=== PATIENT | female | born 1990 | race Caucasian/White ===

== ENCOUNTER 2017-04-11 02:20 | Emergency (ER) | payer OTHER ==
[~2017-04-11] VITALS: Ht 167.6 cm; Wt 63.5 kg
[~2017-04-11 02:20] MED LIST: GABA300 PO; INS70/30PN; INSU100I6 SC; INSUASPI; LEVEMIR FL100 UNIT/1 SC; Lisinopril2.5 MG PO; Omeprazole20 M1 PO
[2017-04-11 03:15] LABS: Calcium, Ionized (POC) 0.81 mmol/L (1.10-1.46); Chloride (POC) 102 mmol/L (98-108); Creatinine (POC) 0.8 mg/dL (0.6-1.0); Glucose (ISTAT POC) 476 mg/dL (70-99); Hemoglobin (POC) 12.6 g/dL (12.0-16.0); Potassium (POC) 4.3 mmol/L (3.5-5.5); Sodium (POC) 134 mmol/L (135-148); Total CO2 (POC) 18 mmol/L (21-32)
[2017-04-11 03:56] LABS: BASOPHILS ABSOLUTE AUTO 0.02 K/mm3 (0.00-0.23); BASOPHILS PERCENT AUTO 0 % (0-2); EOSINOPHILS ABSOLUTE AUTO 0.16 K/mm3 (0.00-0.68); EOSINOPHILS PERCENT AUTO 3 % (0-6); Hematocrit 37.7 % (33.0-51.0); Hemoglobin 13.2 g/dL (11.5-16.0); IMMATURE GRAN ABSOLUTE AUTO 0.01 K/mm3 (0.00-0.10); IMMATURE GRAN PERCENT AUTO 0 % (0-1); LYMPHOCYTES ABSOLUTE AUTO 1.91 K/mm3 (0.84-5.20); LYMPHOCYTES PERCENT AUTO 39 % (21-46); MONOCYTES ABSOLUTE AUTO 0.09 K/mm3 (0.16-1.47); MONOCYTES PERCENT AUTO 2 % (4-13); Mean Corpuscular HGB 30.8 pg (26.0-34.0); Mean Corpuscular Volume 88 fL (80-100); Mean Platelet Volume 10.3 fL (9.1-12.4); NEUTROPHILS ABSOLUTE AUTO 2.67 K/mm3 (1.96-9.15); NEUTROPHILS PERCENT AUTO 55 % (41-73); Platelet Count 278 K/mm3 (150-400); RDW Coefficient Variation 12.4 % (11.7-14.2); RDW Standard Deviation 40.2 fL (35.1-46.3); Red Blood Cell Count 4.29 M/mm3 (3.80-5.20); White Blood Cell Count 4.86 K/mm3 (4.00-11.30)
[2017-04-11 04:19] LABS: Alanine Aminotransfer (ALT/SGP 17 U/L (12-78); Albumin, Blood 3.5 g/dL (3.4-5.0); Alk Phos 104 U/L (50-136); Anion Gap 12 mmol/L (6-16); Aspartate Aminotrans (AST/SGOT 12 U/L (12-37); Bilirubin, Total 0.4 mg/dL (0.1-1.0); Blood Urea Nitrogen 6 mg/dL (8-24); Bun/Creatinine Ratio 12.5 (12.0-20.0); CO2, Blood 22 mmol/L (21-32); Calcium, Blood 8.3 mg/dL (8.5-10.1); Chloride, Blood 104 mmol/L (98-108); Creatinine, Blood 0.48 mg/dL (0.40-1.00); Globulin, Blood 3.4 g/dL (2.2-4.0); Glomerular Filtration Rate >60 (60-); Glucose, Blood 364 mg/dL (70-99); Magnesium, Blood 1.7 mg/dL (1.6-2.4); Potassium, Blood 3.3 mmol/L (3.5-5.5); Sodium, Blood 138 mmol/L (136-145); Total Protein, Blood 6.9 g/dL (6.4-8.2)
[2017-04-11 04:24] LABS: Beta-hydroxybutyrate 7.8 mg/dL (0.2-2.8)
== END 2017-04-11 04:49 | disposition home or self-care (01) ==
LOC: ER 02:20
PROVIDERS: Emergency Medicine
DX: E10.65 Type 1 diabetes mellitus with hyperglycemia (principal); Z91.19 Patient's noncompliance with other medical treatment and regimen; Z88.5 Allergy status to narcotic agent; Z88.8 Allergy status to other drugs, medicaments and biological substances; Z79.899 Other long term (current) drug therapy; Z79.4 Long term (current) use of insulin; Z87.891 Personal history of nicotine dependence
CPT/HCPCS: 36415; 80047; 80053; 81000; 81025; 82010; 82947; 83735; 85014; 85025; 96360; 99283; J1815; J7030

== ENCOUNTER 2017-11-01 21:15 | Emergency (ER) | payer OTHER ==
[~2017-11-01] VITALS: Ht 162.6 cm; Wt 68.5 kg
== END 2017-11-01 22:39 | disposition home or self-care (01) ==
LOC: ER 21:15
DX: M25.562 Pain in left knee (principal); E10.9 Type 1 diabetes mellitus without complications; F17.200 Nicotine dependence, unspecified, uncomplicated; Z88.8 Allergy status to other drugs, medicaments and biological substances; Z88.6 Allergy status to analgesic agent; Z79.899 Other long term (current) drug therapy; W01.0XXA Fall on same level from slipping, tripping and stumbling without subsequent striking against object, initial encounter
CPT/HCPCS: 29505; 73564; 99283-25

== ENCOUNTER 2018-05-04 14:51 | Emergency (ER) | payer OTHER ==
[~2018-05-04] VITALS: Ht 162.6 cm; Wt 67.6 kg
[2018-05-04] MEDS ORDERED: INSUGL100V SC (15:07)
[2018-05-04 16:04] LABS: Source, Urine Clean Catch
[2018-05-04 16:22] LABS: Bilirubin, Urine Neg (Neg); Blood, Urine 3+ (Neg); Glucose Qualitative, Urine 4+ (Neg); Ketones, Urine 1+ (Neg); Leukocyte Esterase, Urine Neg (Neg); Nitrite, Urine Neg (Neg); Protein, Urine 1+ (Neg); Specific Gravity, Urine 1.015 (1.003-1.022); Urobilinogen, Urine NORM (Normal); pH, Urine 6.5 (5.0-8.0)
[2018-05-04 16:35] LABS: Appearance, Urine Clear (Clear); Color, Urine Yellow (P-Yellow)
[2018-05-04 16:38] LABS: Bacteria Few /hpf; Squamous Epithelial Cells Few /hpf (Few); White Blood Cells, Urine 0-2 /hpf (0-5)
== END 2018-05-04 18:03 | disposition home or self-care (01) ==
LOC: ER 14:51
PROVIDERS: Physician Assistant
DX: S90.01XA Contusion of right ankle, initial encounter (principal); S60.221A Contusion of right hand, initial encounter; R10.9 Unspecified abdominal pain; E11.9 Type 2 diabetes mellitus without complications; F17.200 Nicotine dependence, unspecified, uncomplicated; V09.9XXA Pedestrian injured in unspecified transport accident, initial encounter
CPT/HCPCS: 73130; 73562-RT; 73630; 76770; 81001; 99284-25

== ENCOUNTER → 2018-12-27 | Outpatient (CLI) | payer OTHER ==
[~2018-12-27] MED LIST changes: +INSUGL100V SC
[2018-12-29 14:07] LABS: HPV 16 Negative (Negative); HPV 18 Negative (Negative); HPV OTHER HR TYPES Negative (Negative)
== END | disposition home or self-care (01) ==
LOC: LAB SHORT 10:00 → LAB 10:00
PROVIDERS: Nurse Practitioner Family
DX: Z01.419 Encounter for gynecological examination (general) (routine) without abnormal findings (principal)
CPT/HCPCS: 87624; G0145

== ENCOUNTER 2019-10-27 13:09 | Observation (INO) | payer OTHER ==
[~2019-10-27] VITALS: Ht 160 cm; Wt 68.0 kg
[~2019-10-27 13:09] MED LIST changes: -INSUGL100V SC
[2019-10-27 13:40] LABS: BASOPHILS ABSOLUTE AUTO 0.07 K/mm3 (0.00-0.23); BASOPHILS PERCENT AUTO 0 % (0-2); EOSINOPHILS ABSOLUTE AUTO 0.04 K/mm3 (0.00-0.68); EOSINOPHILS PERCENT AUTO 0 % (0-6); Hematocrit 38.9 % (33.0-51.0); IMMATURE GRAN ABSOLUTE AUTO 0.07 K/mm3 (0.00-0.10); IMMATURE GRAN PERCENT AUTO 0 % (0-1); LYMPHOCYTES ABSOLUTE AUTO 0.69 K/mm3 (0.84-5.20); LYMPHOCYTES PERCENT AUTO 4 % (21-46); MONOCYTES ABSOLUTE AUTO 0.79 K/mm3 (0.16-1.47); MONOCYTES PERCENT AUTO 5 % (4-13); Mean Corpuscular HGB 31.3 pg (26.0-34.0); Mean Corpuscular HGB Conc 33.4 g/dL (31.5-36.5); Mean Corpuscular Volume 94 fL (80-100); Mean Platelet Volume 10.5 fL (9.1-12.4); NEUTROPHILS ABSOLUTE AUTO 14.32 K/mm3 (1.96-9.15); NEUTROPHILS PERCENT AUTO 90 % (41-73); Platelet Count 262 K/mm3 (150-400); RDW Coefficient Variation 11.9 % (11.7-14.2); RDW Standard Deviation 40.7 fL (35.1-46.3); Red Blood Cell Count 4.16 M/mm3 (3.80-5.20); White Blood Cell Count 15.98 K/mm3 (4.00-11.30)
[2019-10-27 13:49] LABS: Base Excess Venous -2.3 mmol/L; Bicarbonate Venous 23.1 mmol/L (24.0-30.0); PCO2 Venous 33.2 mmHg (38-42); PO2 Venous 174 mmHg (38-42); pH Blood Venous 7.43 (7.34-7.37)
[2019-10-27 13:52] LABS: Alanine Aminotransfer (ALT/SGP 18 U/L (12-78); Albumin/Globulin Ratio 1.2 (0.8-1.8); Alk Phos 81 U/L (50-136); Anion Gap 5 mmol/L (6-16); Aspartate Aminotrans (AST/SGOT 17 U/L (12-37); Blood Urea Nitrogen 16 mg/dL (8-24); Bun/Creatinine Ratio 23.7 (12.0-20.0); CO2, Blood 27 mmol/L (21-32); Calcium, Blood 9.6 mg/dL (8.5-10.1); Chloride, Blood 108 mmol/L (98-108); Creatinine, Blood 0.67 mg/dL (0.40-1.00); Ethanol (Alcohol), Blood, Med <3 mg/dL; Globulin, Blood 3.2 g/dL (2.2-4.0); Glomerular Filtration Rate >60 (60-); Glucose, Blood 388 mg/dL (70-99); Potassium, Blood 4.7 mmol/L (3.5-5.5); Sodium, Blood 140 mmol/L (136-145); Total Protein, Blood 7.2 g/dL (6.4-8.2)
[2019-10-27 17:29] LABS: Source, Urine Clean Catch
[2019-10-27 17:32] LABS: Appearance, Urine Clear (Clear); Bilirubin, Urine Neg (Neg); Blood, Urine 2+ (Neg); Color, Urine Yellow (P-Yellow); Glucose Qualitative, Urine 4+ (Neg); Ketones, Urine 2+ (Neg); Leukocyte Esterase, Urine Neg (Neg); Nitrite, Urine Neg (Neg); Protein, Urine 1+ (Neg); Specific Gravity, Urine 1.015 (1.003-1.022); Urobilinogen, Urine NORM (Normal)
[2019-10-27 17:48] LABS: U Amphetamine Screen Not Detected; U Barbituate Screen Not Detected; U Benzodiazapine Screen Not Detected; U Buprenorphine Screen Not Detected; U Cannabinoids Screen Not Detected; U Cocaine Screen Not Detected; U Methadone Screen Not Detected; U Methamphetamine Screen Not Detected; U Opiates Screen Not Detected; U Oxycodone Screen Not Detected; U Phencyclidine Screen Not Detected; U Propoxyphene Screen Not Detected
[2019-10-27 17:59] LABS: Bacteria Rare /hpf; Squamous Epithelial Cells Rare /hpf (Few); White Blood Cells, Urine Not Seen /hpf (0-5)
[2019-10-27 19:53] LABS: Salicylate <1.7 mg/dL (2.8-20.0)
[2019-10-27 20:01] LABS: Acetaminophen, Random <2.0 ug/mL (10.0-30.0)
--- NOTE | 2019-10-27 21:32 | NUR ---
PT ARRIVED VIA STRETCHER AT 2114, ASSUMED CARE AT THIS TIME.
--- NOTE | 2019-10-28 05:12 | NUR ---
SHIFT SUMMARY HYPERGLYCEMIA A/O X3, NOT ORIENTED TO DATE BUT WAS REDIRECABLE, CBG 383 UPON ARRIVAL TO ER, MOST RECENT CBG 127. TRANSFERS INDEPENDENTLY, USES RESTROOM W/O ASSISTANCE, HAS NOT EATEN SINCE ARRIVAL TO UNIT, DECLINED FOOD AND DRINK, WANTED TO REST. COMMUNICATES WELL, HX OF HEARING LOSS BUT ABLE TO UNDERSTAND VERBAL INSTRUCTIONS. CALL LIGHT IN REACH, ORIENTED TO ROOM, WILL REPORT TO ONCOMING DAY RN.
[2019-10-28 06:11] LABS: Anion Gap 3 mmol/L (6-16); Blood Urea Nitrogen 14 mg/dL (8-24); Bun/Creatinine Ratio 21.4 (12.0-20.0); CO2, Blood 27 mmol/L (21-32); Calcium, Blood 8.5 mg/dL (8.5-10.1); Chloride, Blood 112 mmol/L (98-108); Creatinine, Blood 0.65 mg/dL (0.40-1.00); Glomerular Filtration Rate >60 (60-); Glucose, Blood 61 mg/dL (70-99); Potassium, Blood 3.5 mmol/L (3.5-5.5); Sodium, Blood 142 mmol/L (136-145)
[2019-10-28] MEDS ORDERED: Lisinopril2.5 MG PO (14:02)
[2019-10-28] MEDS ORDERED: INSUGL100V SC (14:02)
[2019-10-28] MEDS ORDERED: NOVOLOG FL100 UNIT/3 SC (14:02)
--- NOTE | 2019-10-28 14:22 | NUR ---
DISCHARGE DISCHARGE INSTRUCTIONS, MEDICATION LIST AND FOLLOW UP APPOINTMENT. QUESTIONS/CONCERNS ANSWERED. PT VERBALLY INDICATED UNDERSTANDING OF ALL INSTRUCTIONS RECEIVED. ESCORTED OUT BY RIVER
== END 2019-10-28 14:20 | disposition home or self-care (01) ==
LOC: ER 13:09 → MEDS 13:10
PROVIDERS: Emergency Medicine; ADMIT Internal Medicine
DX: G92 Toxic encephalopathy (principal); E10.65 Type 1 diabetes mellitus with hyperglycemia; Z79.4 Long term (current) use of insulin; Z88.6 Allergy status to analgesic agent; Z88.8 Allergy status to other drugs, medicaments and biological substances
CPT/HCPCS: 70450; 80048; 80053; 81001; 82803; 82947; 84443; 85025; 93005; 93010; 96361; 96374; 99285-25; G0378; G0480; J1815; J2310; J7030; J7120; P9612

== ENCOUNTER 2020-07-24 03:57 | Emergency (ER) | payer OTHER ==
[~2020-07-24] VITALS: Ht 160 cm; Wt 75.3 kg
[~2020-07-24 03:57] MED LIST changes: +INSUGL100V SC; +NOVOLOG FL100 UNIT/3 SC
[2020-07-24] MEDS ORDERED: GABA300 PO (04:12)
[2020-07-24 05:23] LABS: BASOPHILS ABSOLUTE AUTO 0.06 K/mm3 (0.00-0.23); BASOPHILS PERCENT AUTO 1 % (0-2); EOSINOPHILS ABSOLUTE AUTO 0.33 K/mm3 (0.00-0.68); EOSINOPHILS PERCENT AUTO 5 % (0-6); Hematocrit 34.7 % (33.0-51.0); Hemoglobin 11.9 g/dL (11.5-16.0); IMMATURE GRAN ABSOLUTE AUTO 0.01 K/mm3 (0.00-0.10); IMMATURE GRAN PERCENT AUTO 0 % (0-1); LYMPHOCYTES ABSOLUTE AUTO 2.33 K/mm3 (0.84-5.20); LYMPHOCYTES PERCENT AUTO 35 % (21-46); MONOCYTES ABSOLUTE AUTO 0.51 K/mm3 (0.16-1.47); MONOCYTES PERCENT AUTO 8 % (4-13); Mean Corpuscular HGB 31.1 pg (26.0-34.0); Mean Corpuscular HGB Conc 34.3 g/dL (31.5-36.5); Mean Corpuscular Volume 91 fL (80-100); Mean Platelet Volume 10.9 fL (9.1-12.4); NEUTROPHILS ABSOLUTE AUTO 3.44 K/mm3 (1.96-9.15); NEUTROPHILS PERCENT AUTO 52 % (41-73); Platelet Count 285 K/mm3 (150-400); RDW Coefficient Variation 12.2 % (11.7-14.2); Red Blood Cell Count 3.83 M/mm3 (3.80-5.20); White Blood Cell Count 6.68 K/mm3 (4.00-11.30)
[2020-07-24 05:43] LABS: Anion Gap 5 mmol/L (6-16); Blood Urea Nitrogen 15 mg/dL (8-24); Bun/Creatinine Ratio 18.5 (12.0-20.0); CO2, Blood 26 mmol/L (21-32); Calcium, Blood 8.6 mg/dL (8.5-10.1); Chloride, Blood 103 mmol/L (98-108); Creatinine, Blood 0.81 mg/dL (0.40-1.00); Glomerular Filtration Rate >60 (60-); Glucose, Blood 442 mg/dL (70-99); Magnesium, Blood 1.7 mg/dL (1.6-2.4); Potassium, Blood 3.7 mmol/L (3.5-5.5); Sodium, Blood 134 mmol/L (136-145); Troponin I <0.015 ng/mL (0.000-0.040)
[2020-07-24] MEDS ORDERED: IBUP800 PO (06:22)
[2020-07-24] MEDS ORDERED: Valium5 MG PO ×2 (06:22→06:24)
[2020-07-24] MEDS ORDERED: ACETAMINOPHEN500 MG PO (06:22)
== END 2020-07-24 06:38 | disposition home or self-care (01) ==
LOC: ER 03:57
PROVIDERS: Emergency Medicine
DX: M25.511 Pain in right shoulder (principal); R07.89 Other chest pain; E10.40 Type 1 diabetes mellitus with diabetic neuropathy, unspecified; F17.200 Nicotine dependence, unspecified, uncomplicated; Z88.8 Allergy status to other drugs, medicaments and biological substances; Z88.6 Allergy status to analgesic agent
CPT/HCPCS: 36415; 71045; 80048; 83735; 84484; 85025; 93005; 93010; 99284-25; A9270

== ENCOUNTER 2020-09-10 01:12 | Emergency (ER) | payer OTHER ==
[~2020-09-10] VITALS: Ht 160 cm; Wt 75.3 kg
[~2020-09-10 01:12] MED LIST changes: +ACETAMINOPHEN500 MG PO; +IBUP800 PO; +Valium5 MG PO
[2020-09-10 03:04] LABS: BASOPHILS ABSOLUTE AUTO 0.04 K/mm3 (0.00-0.23); BASOPHILS PERCENT AUTO 1 % (0-2); EOSINOPHILS ABSOLUTE AUTO 0.38 K/mm3 (0.00-0.68); EOSINOPHILS PERCENT AUTO 5 % (0-6); Hematocrit 38.2 % (33.0-51.0); Hemoglobin 12.9 g/dL (11.5-16.0); IMMATURE GRAN ABSOLUTE AUTO 0.01 K/mm3 (0.00-0.10); IMMATURE GRAN PERCENT AUTO 0 % (0-1); LYMPHOCYTES ABSOLUTE AUTO 2.63 K/mm3 (0.84-5.20); LYMPHOCYTES PERCENT AUTO 32 % (21-46); MONOCYTES ABSOLUTE AUTO 0.53 K/mm3 (0.16-1.47); MONOCYTES PERCENT AUTO 7 % (4-13); Mean Corpuscular HGB 29.9 pg (26.0-34.0); Mean Corpuscular HGB Conc 33.8 g/dL (31.5-36.5); Mean Corpuscular Volume 89 fL (80-100); Mean Platelet Volume 10.9 fL (9.1-12.4); NEUTROPHILS ABSOLUTE AUTO 4.57 K/mm3 (1.96-9.15); NEUTROPHILS PERCENT AUTO 56 % (41-73); Platelet Count 293 K/mm3 (150-400); RDW Coefficient Variation 12.6 % (11.7-14.2); RDW Standard Deviation 41.1 fL (35.1-46.3); Red Blood Cell Count 4.31 M/mm3 (3.80-5.20); White Blood Cell Count 8.16 K/mm3 (4.00-11.30)
[2020-09-10 03:27] LABS: Alanine Aminotransfer (ALT/SGP 27 U/L (12-78); Albumin, Blood 3.8 g/dL (3.4-5.0); Albumin/Globulin Ratio 1.1 (0.8-1.8); Alk Phos 72 U/L (50-136); Anion Gap 5 mmol/L (6-16); Aspartate Aminotrans (AST/SGOT 15 U/L (12-37); Beta-hydroxybutyrate 1.6 mg/dL (0.2-2.8); Bilirubin, Total 0.4 mg/dL (0.1-1.0); Blood Urea Nitrogen 14 mg/dL (8-24); Bun/Creatinine Ratio 19.1 (12.0-20.0); CO2, Blood 26 mmol/L (21-32); Calcium, Blood 9.1 mg/dL (8.5-10.1); Chloride, Blood 107 mmol/L (98-108); Creatinine, Blood 0.73 mg/dL (0.40-1.00); Globulin, Blood 3.4 g/dL (2.2-4.0); Glomerular Filtration Rate >60 (60-); Glucose, Blood 78 mg/dL (70-99); Potassium, Blood 3.3 mmol/L (3.5-5.5); Sodium, Blood 138 mmol/L (136-145); Total Protein, Blood 7.2 g/dL (6.4-8.2)
[2020-09-10 03:33] LABS: Source, Urine Clean Catch
[2020-09-10 03:37] LABS: Bilirubin, Urine Neg (Neg); Blood, Urine 3+ (Neg); Glucose Qualitative, Urine Neg (Neg); Ketones, Urine Neg (Neg); Leukocyte Esterase, Urine Neg (Neg); Nitrite, Urine Neg (Neg); Protein, Urine 1+ (Neg); Urobilinogen, Urine NORM (Normal); pH, Urine 6.5 (5.0-8.0)
[2020-09-10 03:42] LABS: Appearance, Urine Clear (Clear); Color, Urine Yellow (P-Yellow)
[2020-09-10 03:47] LABS: Squamous Epithelial Cells Few /hpf (Few); White Blood Cells, Urine 0-2 /hpf (0-5)
[2020-09-10 03:48] LABS: Bacteria Few /hpf
== END 2020-09-10 04:44 | disposition home or self-care (01) ==
LOC: ER 01:12
PROVIDERS: Emergency Medicine
DX: E11.65 Type 2 diabetes mellitus with hyperglycemia (principal); E11.649 Type 2 diabetes mellitus with hypoglycemia without coma; F17.210 Nicotine dependence, cigarettes, uncomplicated; Z79.4 Long term (current) use of insulin
CPT/HCPCS: 36415; 80053; 81001; 82010; 82947; 85025; 99285

== ENCOUNTER 2020-11-15 01:18 | Emergency (ER) | payer OTHER ==
[~2020-11-15] VITALS: Ht 162.6 cm; Wt 72.6 kg
[2020-11-15] MEDS ORDERED: ZOLOFT25 MG PO (01:34)
[2020-11-15] MEDS ORDERED: TRAM50 PO (03:08)
== END 2020-11-15 03:28 | disposition home or self-care (01) ==
LOC: ER 01:18
DX: S46.911A Strain of unspecified muscle, fascia and tendon at shoulder and upper arm level, right arm, initial encounter (principal); E10.40 Type 1 diabetes mellitus with diabetic neuropathy, unspecified; F17.210 Nicotine dependence, cigarettes, uncomplicated; H91.93 Unspecified hearing loss, bilateral; Z79.4 Long term (current) use of insulin; Z79.899 Other long term (current) drug therapy; Z88.8 Allergy status to other drugs, medicaments and biological substances; Z88.6 Allergy status to analgesic agent; X58.XXXA Exposure to other specified factors, initial encounter; Y93.H3 Activity, building and construction; Y99.0 Civilian activity done for income or pay
CPT/HCPCS: 73030; 99283-25; A9270

== ENCOUNTER 2021-01-02 19:25 | Inpatient (IN) | payer OTHER ==
[~2021-01-02] VITALS: Ht 162.6 cm; Wt 69.1 kg
[~2021-01-02 19:25] MED LIST changes: -NOVOLOG FL100 UNIT/3 SC; +TRAM50 PO
[2021-01-02 19:59] LABS: Source, Urine Clean Catch
[2021-01-02 20:02] LABS: BASOPHILS ABSOLUTE AUTO 0.12 K/mm3 (0.00-0.23); BASOPHILS PERCENT AUTO 1 % (0-2); EOSINOPHILS ABSOLUTE AUTO 0.01 K/mm3 (0.00-0.68); EOSINOPHILS PERCENT AUTO 0 % (0-6); Hematocrit 41.7 % (33.0-51.0); Hemoglobin 14.3 g/dL (11.5-16.0); IMMATURE GRAN ABSOLUTE AUTO 0.29 K/mm3 (0.00-0.10); IMMATURE GRAN PERCENT AUTO 1 % (0-1); LYMPHOCYTES ABSOLUTE AUTO 1.68 K/mm3 (0.84-5.20); LYMPHOCYTES PERCENT AUTO 8 % (21-46); MONOCYTES ABSOLUTE AUTO 0.92 K/mm3 (0.16-1.47); MONOCYTES PERCENT AUTO 4 % (4-13); Mean Corpuscular HGB 30.2 pg (26.0-34.0); Mean Corpuscular HGB Conc 34.3 g/dL (31.5-36.5); Mean Corpuscular Volume 88 fL (80-100); Mean Platelet Volume 11.3 fL (9.1-12.4); NEUTROPHILS ABSOLUTE AUTO 19.33 K/mm3 (1.96-9.15); NEUTROPHILS PERCENT AUTO 87 % (41-73); Platelet Count 552 K/mm3 (150-400); RDW Coefficient Variation 11.9 % (11.7-14.2); RDW Standard Deviation 38.9 fL (35.1-46.3); Red Blood Cell Count 4.74 M/mm3 (3.80-5.20); White Blood Cell Count 22.35 K/mm3 (4.00-11.30)
[2021-01-02 20:03] LABS: Appearance, Urine Clear (Clear); Bilirubin, Urine Neg (Neg); Blood, Urine 5+ (Neg); Glucose Qualitative, Urine 4+ (Neg); Ketones, Urine 4+ (Neg); Leukocyte Esterase, Urine Neg (Neg); Nitrite, Urine Neg (Neg); Protein, Urine 2+ (Neg); Urobilinogen, Urine NORM (Normal)
[2021-01-02 20:18] LABS: Alanine Aminotransfer (ALT/SGP 24 U/L (12-78); Albumin, Blood 4.1 g/dL (3.4-5.0); Albumin/Globulin Ratio 0.9 (0.8-1.8); Alk Phos 136 U/L (50-136); Anion Gap 26 mmol/L (6-16); Aspartate Aminotrans (AST/SGOT 17 U/L (12-37); Bilirubin, Total 0.8 mg/dL (0.1-1.0); Blood Urea Nitrogen 34 mg/dL (8-24); CO2, Blood 12 mmol/L (21-32); Calcium, Blood 10.7 mg/dL (8.5-10.1); Chloride, Blood 93 mmol/L (98-108); Creatinine, Blood 0.87 mg/dL (0.40-1.00); Globulin, Blood 4.4 g/dL (2.2-4.0); Glomerular Filtration Rate >60 (60-); Glucose, Blood 769 mg/dL (70-99); Potassium, Blood 5.1 mmol/L (3.5-5.5); Sodium, Blood 131 mmol/L (136-145); Total Protein, Blood 8.5 g/dL (6.4-8.2)
[2021-01-02 20:20] LABS: Color, Urine Pale Yellow (P-Yellow)
[2021-01-02 20:23] LABS: Bacteria Few /hpf; Red Blood Cells, Urine 0-2 /hpf (0-2); Squamous Epithelial Cells Few /hpf (Few); White Blood Cells, Urine Rare /hpf (0-5)
[2021-01-02 21:07] LABS: PCO2 Venous 30.4 mmHg (38-42)
[2021-01-02 21:08] LABS: Base Excess Venous -20.1 mmol/L; PO2 Venous 106 mmHg (38-42)
[2021-01-02 21:32] LABS: Beta-hydroxybutyrate 89.1 mg/dL (0.2-2.8)
[2021-01-02] MEDS ORDERED: ZOLOFT25 MG PO (21:49)
[2021-01-02] MEDS ORDERED: TRAM50 PO (21:49)
[2021-01-02] MEDS ORDERED: HUMALOG100 UNIT/1 (21:50)
[2021-01-02] MEDS ORDERED: GABA300 PO (21:51)
[2021-01-02 22:43] LABS: Anion Gap 24 mmol/L (6-16); Blood Urea Nitrogen 34 mg/dL (8-24); Bun/Creatinine Ratio 40.1 (12.0-20.0); CO2, Blood 10 mmol/L (21-32); Calcium, Blood 9.1 mg/dL (8.5-10.1); Chloride, Blood 102 mmol/L (98-108); Creatinine, Blood 0.85 mg/dL (0.40-1.00); Glomerular Filtration Rate >60 (60-); Glucose, Blood 699 mg/dL (70-99); Potassium, Blood 5.5 mmol/L (3.5-5.5); Sodium, Blood 136 mmol/L (136-145)
--- NOTE | 2021-01-03 | NUR ---
PT IS ADMITTED TO ICU FOR DKA. SHE IS AOX4, REPORTS S/S OF SINUS INFECTION X 1-2 WEEKS. PT ALSO HAD N/V, NOW RESOLVED FOLLOWING REGLAN AND ZOFRAN GIVEN IN ED. PT ALSO C/O FRONTAL H/A AND R SHOULDER PAIN FROM A ROTATOR CUFF INJURY AT WORK A MONTH AGO. PT AMBULATES EASILY FROM GURNEY TO BED. VS WNL. BILAT AC IV ARE PATENT AND PT HAS INSULIN GTT RUNNING AT 7.8UNITS/HR. WILL INITIATE ADMIT ORDERS AND CONTINUE TO MONITOR.
[2021-01-03 00:08] LABS: Glucose, Blood 655 mg/dL (70-99)
[2021-01-03 00:42] LABS: SARS-Cov-2 (COVID-19) PCR, MMC NEGATIVE (NEGATIVE)
[2021-01-03 04:02] LABS: BASOPHILS ABSOLUTE AUTO 0.11 K/mm3 (0.00-0.23); BASOPHILS PERCENT AUTO 0 % (0-2); EOSINOPHILS ABSOLUTE AUTO 0.01 K/mm3 (0.00-0.68); EOSINOPHILS PERCENT AUTO 0 % (0-6); Hematocrit 35.2 % (33.0-51.0); IMMATURE GRAN ABSOLUTE AUTO 0.46 K/mm3 (0.00-0.10); IMMATURE GRAN PERCENT AUTO 2 % (0-1); LYMPHOCYTES ABSOLUTE AUTO 2.97 K/mm3 (0.84-5.20); LYMPHOCYTES PERCENT AUTO 12 % (21-46); MONOCYTES ABSOLUTE AUTO 1.58 K/mm3 (0.16-1.47); MONOCYTES PERCENT AUTO 7 % (4-13); Mean Corpuscular HGB 30.2 pg (26.0-34.0); Mean Corpuscular HGB Conc 34.1 g/dL (31.5-36.5); Mean Corpuscular Volume 89 fL (80-100); Mean Platelet Volume 10.6 fL (9.1-12.4); NEUTROPHILS ABSOLUTE AUTO 19.33 K/mm3 (1.96-9.15); NEUTROPHILS PERCENT AUTO 79 % (41-73); Platelet Count 500 K/mm3 (150-400); RDW Coefficient Variation 12.2 % (11.7-14.2); RDW Standard Deviation 39.3 fL (35.1-46.3); Red Blood Cell Count 3.97 M/mm3 (3.80-5.20); White Blood Cell Count 24.46 K/mm3 (4.00-11.30)
[2021-01-03 04:32] LABS: Alanine Aminotransfer (ALT/SGP 20 U/L (12-78); Albumin, Blood 3.3 g/dL (3.4-5.0); Albumin/Globulin Ratio 0.9 (0.8-1.8); Alk Phos 105 U/L (50-136); Anion Gap 19 mmol/L (6-16); Aspartate Aminotrans (AST/SGOT 17 U/L (12-37); Bilirubin, Total 0.4 mg/dL (0.1-1.0); Blood Urea Nitrogen 29 mg/dL (8-24); Bun/Creatinine Ratio 35.1 (12.0-20.0); CO2, Blood 11 mmol/L (21-32); Calcium, Blood 9.1 mg/dL (8.5-10.1); Chloride, Blood 111 mmol/L (98-108); Creatinine, Blood 0.83 mg/dL (0.40-1.00); Globulin, Blood 3.5 g/dL (2.2-4.0); Glomerular Filtration Rate >60 (60-); Glucose, Blood 374 mg/dL (70-99); Potassium, Blood 4.8 mmol/L (3.5-5.5); Sodium, Blood 141 mmol/L (136-145); Total Protein, Blood 6.8 g/dL (6.4-8.2)
--- NOTE | 2021-01-03 06:05 | NUR ---
PT'S CBG TRENDS DOWN TO 296. INSULIN GTT CURRENTLY AT 5 UNITS/HR. PT'S H/A AND NAUSEA ARE BOTH RESOLVED, THOUGH HER TEMP IS NOW 100.0. PT IS RESTING COMFORTABLY, NO COMPLAINTS AT PRESENT. NO OTHER SIGNIFICANT CHANGES NOTED. WILL CONTINUE TO MONITOR AND REPORT TO ONCOMING SHIFT.
--- NOTE | 2021-01-03 07:47 | NUR ---
addendum to assessment genito: wdl. skin numerous scratches to hands lower forearms repost kitten scratched her, L armpit lymph nodes palpable swollen reports tenderness to palpation. low grade fever noted.
[2021-01-03 10:40] LABS: Anion Gap 12 mmol/L (6-16); Blood Urea Nitrogen 24 mg/dL (8-24); CO2, Blood 16 mmol/L (21-32); Chloride, Blood 114 mmol/L (98-108); Creatinine, Blood 0.77 mg/dL (0.40-1.00); Glomerular Filtration Rate >60 (60-); Glucose, Blood 210 mg/dL (70-99); Sodium, Blood 142 mmol/L (136-145)
--- NOTE | 2021-01-03 17:18 | NUR ---
PEERLA @ 4, AWAKE/ALERT ORIENTED x 4. NSR NOTED ON LIBRARY CATALOGING TECHNICIAN, RESPIRATIONS EVEN UNLABORED ON ROOM AIR, BS PRESENT ALL QUADRANTS, VOIDING CLEAR YELLOW URINE. BLOOD SUGAR HAS FLUCTUATED, INSULIN GTT AND FLUIDS TURNED OFF @ 1400, 2 HOURS POST 20 UNITS LANTUS ADMINISTRATION PER MD ORDERS EVENING BLOOD SUGAR BACK UP @ 396, HUMALOG ADMINISTERD ORDERED. DISCUSSED WITH PT SHE REPORTS SHE " WILL CARB COUNT" FOR DINNER MEAL.
--- NOTE | 2021-01-03 21:33 | NUR ---
ASSUMED CARE AT 1900 PT LAYING IN BED WATCHING TV. PT IS ALERT/ORIENTED X4, IS ABLE TO MAKE HER NEEDS KNOWN, AND USES CALL LIGHT APPROPRIATLY. SPO2 >98% ON RA. HR 80-90'S. BP STABLE. NO C/O NAUSEA OR VOMITING. PT ABLE TO SELF TRANSFER. GLUCOSE AT [address] MCCAULEY NOTIFIED AND PROVIDED NEW ORDER TO HAVE [facility] HUMALOG FOR AC/HS. 5 UNITS GIVEN ACCORDING TO SCALE, PLAN TO RECHECK GLUCOSE AT 0000. SEE SHIFT ASSESSMENT FOR FULL ASSESSMENT.
[2021-01-04 03:20] LABS: BASOPHILS ABSOLUTE AUTO 0.08 K/mm3 (0.00-0.23); BASOPHILS PERCENT AUTO 1 % (0-2); EOSINOPHILS ABSOLUTE AUTO 0.21 K/mm3 (0.00-0.68); EOSINOPHILS PERCENT AUTO 2 % (0-6); Hematocrit 35.2 % (33.0-51.0); Hemoglobin 11.9 g/dL (11.5-16.0); IMMATURE GRAN ABSOLUTE AUTO 0.08 K/mm3 (0.00-0.10); IMMATURE GRAN PERCENT AUTO 1 % (0-1); LYMPHOCYTES ABSOLUTE AUTO 2.27 K/mm3 (0.84-5.20); LYMPHOCYTES PERCENT AUTO 18 % (21-46); MONOCYTES ABSOLUTE AUTO 0.61 K/mm3 (0.16-1.47); MONOCYTES PERCENT AUTO 5 % (4-13); Mean Corpuscular HGB 30.1 pg (26.0-34.0); Mean Corpuscular HGB Conc 33.8 g/dL (31.5-36.5); Mean Corpuscular Volume 89 fL (80-100); Mean Platelet Volume 10.1 fL (9.1-12.4); NEUTROPHILS ABSOLUTE AUTO 9.52 K/mm3 (1.96-9.15); NEUTROPHILS PERCENT AUTO 75 % (41-73); Platelet Count 423 K/mm3 (150-400); RDW Coefficient Variation 12.6 % (11.7-14.2); RDW Standard Deviation 40.8 fL (35.1-46.3); Red Blood Cell Count 3.95 M/mm3 (3.80-5.20); White Blood Cell Count 12.77 K/mm3 (4.00-11.30)
[2021-01-04 03:38] LABS: Anion Gap 14 mmol/L (6-16); Blood Urea Nitrogen 14 mg/dL (8-24); Bun/Creatinine Ratio 23.1 (12.0-20.0); CO2, Blood 15 mmol/L (21-32); Calcium, Blood 8.5 mg/dL (8.5-10.1); Chloride, Blood 107 mmol/L (98-108); Creatinine, Blood 0.61 mg/dL (0.40-1.00); Glomerular Filtration Rate >60 (60-); Glucose, Blood 358 mg/dL (70-99); Potassium, Blood 4.3 mmol/L (3.5-5.5); Sodium, Blood 136 mmol/L (136-145)
--- NOTE | 2021-01-04 06:11 | NUR ---
END OF SHIFT SUMMARY NO ACUTE EVENTS OVERNIGHT AND SHE SLEPT MOST OF THE NIGHT. PT IS ALERT/ORIENTED X4 AND ABLE TO MAKE HER NEEDS KNOWN. SPO2 >98% ON RA. AFEBRILE. HR 80-90'S. BP STABLE. ZOFRAN GIVEN X1 FOR NAUSEA AND PRN TYLENOL FOR HEADACHE THIS AM AFTER WAKING UP. PT ABLE TO AMBULATE HERSELF TO TOILET IN ROOM. WILL REPORT TO AM RN WHEN AVAILABLE.
--- NOTE | 2021-01-04 08:39 | NUR ---
called DR Cortez re: nausea/vomiting current blood glucose level, current insulin orders. orders received to restart insulin gtt, NS @ 75. states to use ICU insulin gtt protocol. spoke with Sanjeev ANGEL/CN regarding these orders, Tiffanie to call back to discuss plan.
--- NOTE | 2021-01-04 09:50 | NUR ---
Tiffanie rn/cn reports new orders received, will not be restaring insulin gtt at this time. Orders on chart.
[2021-01-04 15:47] LABS: BASOPHILS ABSOLUTE AUTO 0.07 K/mm3 (0.00-0.23); BASOPHILS PERCENT AUTO 1 % (0-2); EOSINOPHILS ABSOLUTE AUTO 0.05 K/mm3 (0.00-0.68); EOSINOPHILS PERCENT AUTO 0 % (0-6); Hemoglobin 13.1 g/dL (11.5-16.0); IMMATURE GRAN ABSOLUTE AUTO 0.09 K/mm3 (0.00-0.10); IMMATURE GRAN PERCENT AUTO 1 % (0-1); LYMPHOCYTES ABSOLUTE AUTO 2.77 K/mm3 (0.84-5.20); LYMPHOCYTES PERCENT AUTO 22 % (21-46); MONOCYTES ABSOLUTE AUTO 0.74 K/mm3 (0.16-1.47); MONOCYTES PERCENT AUTO 6 % (4-13); Mean Corpuscular HGB 30.2 pg (26.0-34.0); Mean Corpuscular HGB Conc 34.5 g/dL (31.5-36.5); Mean Corpuscular Volume 88 fL (80-100); Mean Platelet Volume 9.8 fL (9.1-12.4); NEUTROPHILS ABSOLUTE AUTO 9.17 K/mm3 (1.96-9.15); NEUTROPHILS PERCENT AUTO 71 % (41-73); Platelet Count 428 K/mm3 (150-400); RDW Coefficient Variation 12.4 % (11.7-14.2); RDW Standard Deviation 39.7 fL (35.1-46.3); Red Blood Cell Count 4.34 M/mm3 (3.80-5.20); White Blood Cell Count 12.89 K/mm3 (4.00-11.30)
[2021-01-04 16:03] LABS: Anion Gap 12 mmol/L (6-16); Blood Urea Nitrogen 11 mg/dL (8-24); Bun/Creatinine Ratio 16.7 (12.0-20.0); CO2, Blood 16 mmol/L (21-32); Calcium, Blood 8.4 mg/dL (8.5-10.1); Chloride, Blood 112 mmol/L (98-108); Creatinine, Blood 0.66 mg/dL (0.40-1.00); Glomerular Filtration Rate >60 (60-); Glucose, Blood 113 mg/dL (70-99); Potassium, Blood 4.1 mmol/L (3.5-5.5); Sodium, Blood 140 mmol/L (136-145)
--- NOTE | 2021-01-04 17:48 | NUR ---
AWAKE/ALERT ORIENTED x 4, NSR NOTED ON CARDIAC MONIOTR, LUNG SOUNDS CLEAR ALL LARA, WAS NAUSEATED THIS AM AND DID VOMIT APPRX 200 ML WATERY BILE SP ZOFRAN ADMINISTRATION. PHENERGAN ORDERED AND ADMINISTERED CHARTED, WITH RELIEF OF NAUSEA. REPORTS POOR APPETITE THIS DAY, ENCOURAGED TO TRY TO EAT SMALL MEALS. LANTUS WAS INCREASED TO BID AND INCREASE DOSE. URINATING WITH NO COMPLAINTS. WAS CHANGED TO FLOOR STATUS TODAY.
--- NOTE | 2021-01-04 18:40 | NUR ---
CALLED REPORT TO Heather SHEEHAN. 184 TRANSPORTED VIA WHEELCHAIR TO 3RD FLOOR, RESPIRATIONS EVEN UNLACORED ON ROOM AIR NO S/S OF DISTRESS NOTED. ACCOMPANIED BY MANAGER WINTER. RELINQUISH CARE
--- NOTE | 2021-01-04 19:56 | NUR ---
1835 RECEIVED PT TO RM 355 VIA W/C FROM ICU. PT IS A&O, INDEPENDENT IN RM. DENIED NEEDS AT THIS TIME. REPORT GIVEN TO ONCOMING RN.
--- NOTE | 2021-01-05 05:27 | NUR ---
SHIFT SUMMARY PT RECEIVED IV ANTIBIOTICS. SHE IS AD-PAVEL ACTIVITY IN HER ROOM. PARTIALLY DEAF,CAN HEAR PEOPLE BETTER WHEN THEY FACE HER DIRECTLY. SLEPT THE ENTIRETY OF THE SHIFT. PT STATES SHE CAN RECOGNIZE WHEN HER BLOOD SUGARS ARE LOW, GIVEN 30 UNITS OF SEMGLEE. DENIED SX OF HYPOGLYCEMIA THROUGH OUT THE NIGHT. IV FLUIDS INFUSING. BED IN LOWEST POSITION, CALL LIGHT WITHIN REACH.
--- NOTE | 2021-01-05 18:02 | NUR ---
Update 01/05/21: Per chart review with Dr. Van this am, pt. likely to discharge within the next 24-48 hours. Pt. is in the process of getting a new insulin pump as hers malfunctioned. Plan to discuss further with pt. in the am to determine if there is anything we can do to assist her in that process. Anticipate needs at time of discharge to include: F/U appt. with Dr. Heart (no F/U scheduled at this time), hospital F/U appt. with PCP within 5-7 days post discharge, assistance with insulin pump as needed.
--- NOTE | 2021-01-05 18:04 | NUR ---
PT HAS HAD A NON PRODUCTIVE COUGH T/OUT THE DAY AND REPORTS HER THROAT HURTS FROM COUGHING. TO RECEIVED FROM DR. DUQUE FOR BENZONATATE PEARLS 100 MG Q4 PRN COUGH. ORDER PROCESSED.
--- NOTE | 2021-01-05 18:18 | NUR ---
SHIFT SUMMARY: PT A/O IND IN ROOM. PT HAD OCCASIONAL COUGH T/OUT DAY AND DEVELOPED SORE THROAT. TYLENOL AND TESSALON PEARLS GIVEN. BS UNDER 220 T/OUT DAY SHIFT. NO OTHER ACUTE CONCERNS.
--- NOTE | 2021-01-06 04:32 | NUR ---
END OF SHIFT SUMMARY: Pt A&Ox4. Independent in room. No acute events overnight. Able to voice needs, call light within limits. Pt resting at this time, will continue to monitor till shift end.
[2021-01-06 05:19] LABS: Albumin, Blood 2.5 g/dL (3.4-5.0); Anion Gap 5 mmol/L (6-16); Blood Urea Nitrogen 7 mg/dL (8-24); Bun/Creatinine Ratio 13.9 (12.0-20.0); CO2, Blood 27 mmol/L (21-32); Calcium, Blood 8.5 mg/dL (8.5-10.1); Chloride, Blood 111 mmol/L (98-108); Glomerular Filtration Rate >60 (60-); Glucose, Blood 179 mg/dL (70-99); Phosphorus, Blood 2.2 mg/dL (2.5-4.9); Potassium, Blood 3.4 mmol/L (3.5-5.5); Sodium, Blood 143 mmol/L (136-145)
[2021-01-06] MEDS ORDERED: INSULANPEN SC (12:15)
[2021-01-06] MEDS ORDERED: AMOCLA875 PO (12:15)
[2021-01-06] MEDS ORDERED: BENZ100A PO (12:15)
[2021-01-06] MEDS ORDERED: HUMALOG KW100 UNIT/1 SC ×2 (12:16)
--- NOTE | 2021-01-06 14:38 | NUR ---
DISCHARGE NOTE: PT EDUCATED ON DC PLAN AND MEDICATIONS. PT VU. PT IV REMOVED W/NO SIGNS OF INFECTION. BELONGINGS PACKED AND SENT WITH PT. PT ESCORTED TO [facility].
== END 2021-01-06 14:24 | disposition home or self-care (01) | DRG 638 ==
LOC: ER 19:25 → ICUE 22:03 → ER 22:03 → ICUW 22:03 → ER 22:06 → MEDS 22:06 → ICUE 23:47 → ICUW 23:47 → ICUE 01-03 17:12 → ICUW 01-03 17:12 → ICUE 01-04 16:36 → MEDS 01-04 18:45
PROVIDERS: Family Medicine; Internal Medicine; Student in an Organized Health Care Education/Training Program; ADMIT Internal Medicine
DX: E10.10 Type 1 diabetes mellitus with ketoacidosis without coma (principal); G93.49 Other encephalopathy; Z20.822 Contact with and (suspected) exposure to COVID-19; E86.0 Dehydration; E10.40 Type 1 diabetes mellitus with diabetic neuropathy, unspecified; F17.210 Nicotine dependence, cigarettes, uncomplicated; F41.8 Other specified anxiety disorders; R11.2 Nausea with vomiting, unspecified; J01.90 Acute sinusitis, unspecified; Z90.89 Acquired absence of other organs; Z88.8 Allergy status to other drugs, medicaments and biological substances; Z98.890 Other specified postprocedural states; Z79.4 Long term (current) use of insulin; Z79.899 Other long term (current) drug therapy
CPT/HCPCS: 36415; 71046; 80048; 80053; 80069; 80202; 81001; 82010; 82803; 82947; 83605; 85025; 87040; 93005; 93010; 96374; 96375; 99285-25; A9270; J0696; J1650; J1815; J2405; J2550; J2765; J3370; J3480; J7030; J7042; J7050; U0004

== ENCOUNTER → 2021-04-20 | Outpatient (CLI) | payer OTHER ==
[~2021-04-20] MED LIST changes: +AMOCLA875 PO; +BENZ100A PO; +HUMALOG KW100 UNIT/1 SC; +HUMALOG100 UNIT/1; +INSULANPEN SC; +ZOLOFT25 MG PO
[2021-04-20 19:33] LABS: BASOPHILS ABSOLUTE AUTO 0.04 K/mm3 (0.00-0.23); BASOPHILS PERCENT AUTO 1 % (0-2); EOSINOPHILS ABSOLUTE AUTO 0.18 K/mm3 (0.00-0.68); EOSINOPHILS PERCENT AUTO 3 % (0-6); Hematocrit 41.2 % (33.0-51.0); Hemoglobin 13.8 g/dL (11.5-16.0); IMMATURE GRAN ABSOLUTE AUTO 0.02 K/mm3 (0.00-0.10); IMMATURE GRAN PERCENT AUTO 0 % (0-1); LYMPHOCYTES ABSOLUTE AUTO 1.39 K/mm3 (0.84-5.20); LYMPHOCYTES PERCENT AUTO 21 % (21-46); MONOCYTES ABSOLUTE AUTO 0.37 K/mm3 (0.16-1.47); MONOCYTES PERCENT AUTO 6 % (4-13); Mean Corpuscular HGB 29.4 pg (26.0-34.0); Mean Corpuscular HGB Conc 33.5 g/dL (31.5-36.5); Mean Corpuscular Volume 88 fL (80-100); Mean Platelet Volume 10.8 fL (9.1-12.4); NEUTROPHILS ABSOLUTE AUTO 4.51 K/mm3 (1.96-9.15); NEUTROPHILS PERCENT AUTO 69 % (41-73); Platelet Count 368 K/mm3 (150-400); RDW Coefficient Variation 12.3 % (11.7-14.2); RDW Standard Deviation 39.7 fL (35.1-46.3); White Blood Cell Count 6.51 K/mm3 (4.00-11.30)
[2021-04-20 20:17] LABS: Alanine Aminotransfer (ALT/SGP 24 U/L (12-78); Albumin, Blood 3.5 g/dL (3.4-5.0); Albumin/Globulin Ratio 1.2 (0.8-1.8); Alk Phos 113 U/L (50-136); Anion Gap 7 mmol/L (6-16); Aspartate Aminotrans (AST/SGOT 13 U/L (12-37); Blood Urea Nitrogen 9 mg/dL (8-24); Bun/Creatinine Ratio 14.8 (12.0-20.0); CHOL/HDL RATIO 3.9; CO2, Blood 25 mmol/L (21-32); Calcium, Blood 8.8 mg/dL (8.5-10.1); Chloride, Blood 101 mmol/L (98-108); Cholesterol 245 mg/dL (50-200); Creatinine, Blood 0.61 mg/dL (0.40-1.00); Glomerular Filtration Rate >60 (60-); Glucose, Blood 426 mg/dL (70-99); HDL Cholesterol 63 mg/dL (>39); Potassium, Blood 4.4 mmol/L (3.5-5.5); Sodium, Blood 133 mmol/L (136-145); Total Protein, Blood 6.5 g/dL (6.4-8.2)
[2021-04-20 20:21] LABS: LDL/HDL RATIO 2.3; Low Density Lipoprotein Chol 146 mg/dL (0-110); Triglycerides 180 mg/dL (30-140); Very Low Density Lipoprot Chol 36 mg/dL (6-28)
== END ==
LOC: LAB SHORT 18:21
PROVIDERS: Family Medicine
DX: E66.9 Obesity, unspecified (principal); E10.42 Type 1 diabetes mellitus with diabetic polyneuropathy
CPT/HCPCS: 80053; 80061; 84443; 85025

== ENCOUNTER 2021-11-13 16:04 | Emergency (ER) | payer OTHER ==
[~2021-11-13] VITALS: Ht 162.6 cm; Wt 86.2 kg
== END 2021-11-13 20:06 | disposition home or self-care (01) ==
LOC: ER 16:04
DX: S91.115A Laceration without foreign body of left lesser toe(s) without damage to nail, initial encounter (principal); E10.9 Type 1 diabetes mellitus without complications; W27.0XXA Contact with workbench tool, initial encounter; F17.210 Nicotine dependence, cigarettes, uncomplicated; Z79.4 Long term (current) use of insulin; Z79.899 Other long term (current) drug therapy
CPT/HCPCS: 90714

== ENCOUNTER → 2021-11-20 | Outpatient (CLI) | payer OTHER ==
[2021-11-20 19:28] LABS: Follicle Stimulating Hormone 3.9 mIU/ml; Luteinizing Hormone 10.4 mIU/ml
[2021-11-20 19:29] LABS: Prolactin 7.1 ng/mL
== END | disposition home or self-care (01) ==
LOC: LAB 17:47 → LAB SHORT 17:47
PROVIDERS: Family Medicine
DX: N94.6 Dysmenorrhea, unspecified (principal); N92.0 Excessive and frequent menstruation with regular cycle; L68.0 Hirsutism
CPT/HCPCS: 82627; 82670; 83001; 83002; 84146

== ENCOUNTER → 2022-02-09 | Outpatient (CLI) | payer OTHER ==
[2022-02-10 09:41] LABS: Candida species (DNA Probe) Negative (NEGATIVE); G. vaginalis (DNA Probe) Positive (NEGATIVE); T. vaginalis (DNA Probe) Negative (NEGATIVE)
== END | disposition home or self-care (01) ==
LOC: LAB SHORT 13:20
PROVIDERS: Family Medicine
DX: B37.31 Acute candidiasis of vulva and vagina (principal)
CPT/HCPCS: 87086; 87480; 87510; 87660

== ENCOUNTER 2022-07-29 07:22 | Emergency (ER) | payer OTHER ==
[~2022-07-29] VITALS: Ht 162.6 cm; Wt 86.2 kg
[2022-07-29 08:17] VITALS: BP 154/84
[2022-07-29 09:13] LABS: Albumin, Blood 3.4 g/dL (3.4-5.0); Albumin/Globulin Ratio 0.9 (0.8-1.8); Bilirubin, Total 1.3 mg/dL (0.1-1.0); Bun/Creatinine Ratio 14.8 (12.0-20.0); Calcium, Blood 9.1 mg/dL (8.5-10.1); Creatinine, Blood 0.61 mg/dL (0.40-1.00); Globulin, Blood 3.9 g/dL (2.2-4.0); Potassium, Blood 4.7 mmol/L (3.5-5.5); Total Protein, Blood 7.3 g/dL (6.4-8.2)
[2022-07-29 09:27] LABS: BASOPHILS ABSOLUTE AUTO 0.07 K/mm3 (0.00-0.23); BASOPHILS PERCENT AUTO 1 % (0-2); EOSINOPHILS ABSOLUTE AUTO 0.19 K/mm3 (0.00-0.68); EOSINOPHILS PERCENT AUTO 2 % (0-6); Hematocrit 39.9 % (33.0-51.0); Hemoglobin 14.3 g/dL (11.5-16.0); IMMATURE GRAN ABSOLUTE AUTO 0.18 K/mm3 (0.00-0.10); IMMATURE GRAN PERCENT AUTO 2 % (0-1); LYMPHOCYTES ABSOLUTE AUTO 1.41 K/mm3 (0.84-5.20); LYMPHOCYTES PERCENT AUTO 15 % (21-46); MONOCYTES ABSOLUTE AUTO 0.64 K/mm3 (0.16-1.47); MONOCYTES PERCENT AUTO 7 % (4-13); Mean Corpuscular HGB 30.4 pg (26.0-34.0); Mean Corpuscular HGB Conc 35.8 g/dL (31.5-36.5); Mean Corpuscular Volume 85 fL (80-100); NEUTROPHILS ABSOLUTE AUTO 6.99 K/mm3 (1.96-9.15); NEUTROPHILS PERCENT AUTO 74 % (41-73); RDW Standard Deviation 37.2 fL (35.1-46.3); White Blood Cell Count 9.48 K/mm3 (4.00-11.30)
[2022-07-29 09:48] LABS: Mean Platelet Volume 10.3 fL (9.1-12.4); Platelet Count 382 K/mm3 (150-400)
[2022-07-29] MEDS ORDERED: CLIN150 PO (11:18)
[2022-08-01] MEDS ORDERED: Inderal40 MG PO (06:03)
[2022-08-01] MEDS ORDERED: LOSA25 PO (06:04)
[2022-08-01] MEDS ORDERED: CYCLOBENZAPRINE5 MG PO (06:04)
[2022-08-01] MEDS ORDERED: DULO30 PO (06:04)
[2022-08-01] MEDS ORDERED: GUAI200 PO (06:05)
[2022-08-01] MEDS ORDERED: NORT10 PO (06:05)
[2022-08-02] MEDS ORDERED: COLACE100 MG PO (15:31)
[2022-08-02] MEDS ORDERED: VISBIOME 112.51 EACH PO (15:32)
[2022-08-02] MEDS ORDERED: ONDA4ODT MM (15:32)
[2022-08-02] MEDS ORDERED: Calcium Carbon500 MG PO (15:32)
[2022-08-02] MEDS ORDERED: Norco 5-325 Ta1 EACH PO (15:33)
[2022-08-02] MEDS ORDERED: HUMALOG KW100 UNIT/1 SC (15:34)
== END 2022-07-29 11:42 | disposition home or self-care (01) ==
LOC: ER 07:22
PROVIDERS: Physician Assistant
DX: K04.7 Periapical abscess without sinus (principal); Z88.8 Allergy status to other drugs, medicaments and biological substances; Z79.899 Other long term (current) drug therapy; Z79.891 Long term (current) use of opiate analgesic; Z79.4 Long term (current) use of insulin; E10.40 Type 1 diabetes mellitus with diabetic neuropathy, unspecified; F17.210 Nicotine dependence, cigarettes, uncomplicated
CPT/HCPCS: 70491; 80053; 81025; 85025; 96365-59; 99284-25; A9270; J7030; Q9967